=== PATIENT | female | born 1975 | race Caucasian/White ===

== ENCOUNTER 2017-02-09 20:30 | Outpatient (CLI) | payer MEDICARE, MEDICAID | END 2017-02-09 20:31 | disposition home or self-care (01) | LOC: SLEEPLAB 20:30 | PROVIDERS: ATTEND Student in an Organized Health Care Education/Training Program | DX: G47.9 Sleep disorder, unspecified (principal); E11.9 Type 2 diabetes mellitus without complications; F32.9 Major depressive disorder, single episode, unspecified; I10 Essential (primary) hypertension | CPT/HCPCS: 95810 ==

== ENCOUNTER 2017-02-14 16:59 | Emergency (ER) | payer MEDICARE, MEDICAID ==
[2017-02-14] MEDS ORDERED: Lidocaine 1% PF 5 ML VIAL ONE (18:04)
[2017-02-14] MEDS ORDERED: Adacel (T-DAP) 0.5 ML VIAL ONE (18:46)
== END 2017-02-14 18:56 | disposition home or self-care (01) ==
LOC: ERS 16:59
DX: L02.01 Cutaneous abscess of face (principal); E78.5 Hyperlipidemia, unspecified; I10 Essential (primary) hypertension; E11.9 Type 2 diabetes mellitus without complications; F32.9 Major depressive disorder, single episode, unspecified; Z79.899 Other long term (current) drug therapy; Z79.4 Long term (current) use of insulin
CPT/HCPCS: 10060; 87070; 87077; 87186; 87205; 90471; 90715; J2001

== ENCOUNTER 2017-03-24 11:12 | Emergency (ER) | payer MEDICARE, MEDICAID ==
[2017-03-24] MEDS ORDERED: Lidocaine 1% (PF) 30 ML VIAL ONE (12:15)
[2017-03-24] MEDS ORDERED: HYDROcodone/Acetaminophen 10/325 mg Tablet ONE (12:23)
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
== END 2017-03-24 14:38 | disposition home or self-care (01) ==
LOC: ERS 11:12
DX: S61.412A Laceration without foreign body of left hand, initial encounter (principal); E78.5 Hyperlipidemia, unspecified; I10 Essential (primary) hypertension; E11.9 Type 2 diabetes mellitus without complications; F32.9 Major depressive disorder, single episode, unspecified; W26.0XXA Contact with knife, initial encounter
CPT/HCPCS: 12001; 99406; J2001

== ENCOUNTER 2017-05-06 09:42 | Outpatient (CLI) | payer MEDICARE, MEDICAID ==
--- NOTE | 2017-05-06 13:19 | MRI ---
MRI OF RIGHT SHOULDER PERFORMED WITHOUT CONTRAST ENHANCEMENT: HISTORY: The patient injured biceps tendon, hearing a pop while throwing a football. FINDINGS: The AC joint shows mild hypertrophic change. The infraspinatus tendon is intact. The supraspinatus tendon also appears intact. There appears to be a small interstitial tear and some tendinopathy changes of the supraspinatus tendon. In addition, there are some edema changes near the musculotendinous junction of the more posterior fibers of the supraspinatus tendon which appears to represent a small low-grade muscle injury in this area. The subscapularis muscle and tendon appear intact. Biceps tendon is torn. It is retracted with martha ps tendon seen in a serpiginous shape retracted to the mid humerus level. There is a truncated appea orly to the labrum in this region associated with this. IMPRESSION: 1. Biceps tendon tear. The biceps tendon is retracted to approximately mid humerus level. 2. Evidence of low-grade muscle tear involving the more posterior fibers of the supraspinatus tendon at the musculotendinous junction. 3. Truncated appearance to the labrum at the expected location of the biceps tendon. POS: [facility]
== END 2017-05-06 09:43 | disposition home or self-care (01) ==
LOC: MRI 09:42
PROVIDERS: ATTEND Family Medicine
DX: S46.211A Strain of muscle, fascia and tendon of other parts of biceps, right arm, initial encounter (principal); S46.011A Strain of muscle(s) and tendon(s) of the rotator cuff of right shoulder, initial encounter

== ENCOUNTER 2018-02-05 08:39 | Outpatient (CLI) | payer MEDICARE, MEDICAID ==
--- NOTE | 2018-02-05 10:22 | ULT ---
BILATERAL LOWER EXTREMITY VENOUS DOPPLER ULTRASOUND: DATE: 02/05/2018. COMPARISON: None. HISTORY: Phlebitis, thrombophlebitus. TECHNIQUE: Multiplanar, sparks scale sonographic imaging of venous structures of bilateral lower extremities obttyson vee with color flow and spectral analysis. FINDINGS: Bilateral common femoral veins, greater saphenous veins, profunda femoral veins, femoral veins, popli teal veins, and posterior tibial veins are patent. Normal blood flow, augmentation, and compression noted within the deep venous system bilaterally. No evidence for DVT noted on either side. IMPRESSION: No evidence for deep venous thrombosis of either lower extremity. POS: [facility]
[2018-02-05 10:46] LABS: Estimated GFR-MDRD - POC Greater than 90
--- NOTE | 2018-02-05 13:14 | MRI ---
MRI CERVICAL SPINE WITH AND WITHOUT IV CONTRAST: Date: 02-05-18 Provided Clinical History: Bilateral arm weakness. FINDINGS: Cervical alignment appears normal. Vertebral body heights appear preserved. No focal concerning regio nal marrow or muscular abnormality is apparent. The visualized posterior fossa, cervical spinal cord, and cervicomedullary junction demonstrate normal signal and morphology. There is no evidence for abn ormal contrast enhancement. There is no significant central canal or foraminal narrowing apparent thr oughout. IMPRESSION: Unremarkable MRI of the cervical spine. POS: [facility]
[2018-02-05] MEDS ORDERED: Gadobenate Dimeglumine 529 MG/1 ML (20ML VIAL) ONE (13:39)
== END 2018-02-05 08:40 | disposition home or self-care (01) ==
LOC: BICMRI 08:39
PROVIDERS: ATTEND Family Medicine
DX: I80.00 Phlebitis and thrombophlebitis of superficial vessels of unspecified lower extremity (principal); M79.605 Pain in left leg; M79.606 Pain in leg, unspecified; R60.0 Localized edema; R29.898 Other symptoms and signs involving the musculoskeletal system
CPT/HCPCS: 72156; 82565; 93970; A9579

== ENCOUNTER 2018-10-01 11:47 | Emergency (ER) | payer MEDICARE ==
--- NOTE | 2018-10-01 12:34 | RAD ---
Left knee 4 views HISTORY: Left knee injury. COMPARISON: 09/05/2018. FINDINGS: Joint spaces are preserved. Minimal osteophytosis. No acute fracture or dislocation. Small amount of fluid distends the suprapatellar bursa on the lateral view. IMPRESSION: Small joint effusion. Cause is not evident. No acute osseous abnormalities are demonstrat ed.
[2018-10-01] MEDS ORDERED: Naproxen 500 MG TAB ONE (13:58)
== END 2018-10-01 14:05 | disposition home or self-care (01) ==
LOC: ERS 11:47
DX: M25.562 Pain in left knee (principal)

== ENCOUNTER 2018-10-27 09:20 | Outpatient (CLI) | payer MEDICARE, MEDICAID ==
--- NOTE | 2018-10-27 12:25 | MRI ---
MRI LEFT KNEE: DATE: 08/10/2018. PROVIDED CLINICAL HISTORY: Left knee pain. FINDINGS: The anterior cruciate ligament, posterior cruciate ligament, medial collateral ligament, and lateral collateral ligamentous complex demonstrate an intact MR appearance, as does the extensor mechanism. There is a full-thickness radial tear involving the posterior horn of the medial meniscus as it appro aches the meniscal root. The lateral meniscus demonstrates no evidence for tear. There is multifocal articular cartilage loss involving the medial femorotibial joint, including foci of apparent full-thickness articular cartilage loss. Articular cartilage irregularity and signal in homogeneity involve the patellar articular cartilage with probable near full-thickness fissure involv ing medial facet. There is a small knee joint effusion. No focal concerning regional marrow or muscular signal abnorma lity apparent. IMPRESSION: 1. Posterior horn medial meniscal tear. 2. Medial femorotibial and patellar articular chondrosis. 3. Small knee joint effusion. POS: [facility]
== END 2018-10-27 09:21 | disposition home or self-care (01) ==
LOC: BICMRI 09:20
PROVIDERS: ATTEND Family Medicine
DX: M25.462 Effusion, left knee (principal); S83.242A Other tear of medial meniscus, current injury, left knee, initial encounter

== ENCOUNTER 2018-11-13 11:17 | Outpatient (CLI) | payer MEDICARE, MEDICAID ==
[2018-11-13 12:19] LABS: #Basophils 0.1 thou/uL (0.0-0.2); #Eosinphils 0.2 thou/uL (0.0-0.7); #Lymphocytes 2.2 thou/uL (1.20-3.40); #Monocytes 0.5 thou/uL (0.11-0.59); #Neutrophils 3.7 thou/uL (1.40-6.50); %Basophils 0.8 % (0.0-1.0); %Eosinophils 2.4 % (0.0-10.0); %Lymphocytes 33.3 % (21.0-51.0); %Monocytes 7.7 % (0.0-10.0); %Neutrophils 55.9 % (42.0-75.0); Hemoglobin 13.1 g/dL (12.0-16.0); Mean Corpuscular HGB CONC 34.5 g/dL (32.0-36.0); Mean Corpuscular Hemoglobin 31.6 pg (27.0-31.0); Mean Corpuscular Volume 91.5 fL (78.0-98.0); Mean Platelet Volume 6.5 fL (7.4-10.4); Platelet Count 402 thou/uL (130-400); RBC Distribution Width 12.6 % (11.5-14.5); Red Blood Cell (RBC) Count 4.15 mill/uL (4.20-5.40); White Blood Cell (WBC) Count 6.7 thou/uL (4.8-10.8)
[2018-11-13 12:22] LABS: INR-International Normal Ratio 0.9; Prothrombin Time 11.8 SEC (12.0-14.7)
[2018-11-13 12:38] LABS: Anion Gap 17 mmol/L (10-20); BUN (Urea Nitrogen) 14 mg/dL (7.0-18.7); Calc. Creatinine Clearance 0 mL/min (70-130); Calcium 9.6 mg/dL (7.8-10.44); Carbon Dioxide 19 mmol/L (22-29); Chloride 102 mmol/L (98-107); Estimated GFR-MDRD 73; Glucose 391 mg/dL (70-105); Potassium 4.6 mmol/L (3.5-5.1); Sodium 133 mmol/L (136-145)
== END 2018-11-13 11:18 | disposition home or self-care (01) ==
LOC: LABBT 11:17
PROVIDERS: ATTEND Orthopaedic Surgery
DX: Z01.818 Encounter for other preprocedural examination (principal); S83.242A Other tear of medial meniscus, current injury, left knee, initial encounter
CPT/HCPCS: 80048; 85025; 85610; 93005; 93010

== ENCOUNTER 2018-11-20 06:34 | Day surgery (SDC) | payer MEDICARE, MEDICAID ==
[2018-11-13 11:26] VITALS: BMI 32.0
[2018-11-20] MEDS ORDERED: Fentanyl 100 MCG/2 ML VIAL ONE (06:45)
[2018-11-20] MEDS ORDERED: Bupivacaine/Epinephrine 0.25% 30 ML VIAL ONE (06:50)
[2018-11-20] MEDS ORDERED: Lidocaine 1% (PF) 30 ML VIAL ONE (06:50)
[2018-11-20] MEDS ORDERED: Midazolam HCl 2 mg/2 ml Vial ONE (07:30)
[2018-11-20] MEDS ORDERED: Lidocaine 1% PF 5 ML VIAL ONE (10:17)
[2018-11-20] MEDS ORDERED: Ondansetron PF 4 MG/2 ML Vial ONE (10:17)
[2018-11-20] MEDS ORDERED: Ketorolac Tromethamine 30 MG/ML VIAL ONE (10:17)
[2018-11-20] MEDS ORDERED: PROPOFOL 200 MG/20 ML VIAL ONE (10:17)
[2018-11-20] MEDS ORDERED: HYDROcodone/Acetaminophen 5/325 mg Tablet ONE (12:02)
--- NOTE | 2018-11-20 16:32 | OP ---
DATE OF PROCEDURE: 11/20/2018 PREOPERATIVE DIAGNOSES: 1. Left posterior horn medial meniscus. 2. Chondrosis, medial femoral compartment. POSTOPERATIVE DIAGNOSES: 1. Degenerative fraying, posterior horn of the left medial meniscus tear. 2. Grade 3 medial femoral condyle defect x5 mm and grade 2 x3 mm with grade 1 changes in medial tibial plateau and grade 2 changes noted in patella. PROCEDURE PERFORMED: Partial meniscectomy, posterior horn of medial meniscus. ANESTHESIOLOGIST: Omkar Ball ANESTHESIA: The patient received an LMA with 30 mL of Marcaine 0.25% with epinephrine preprocedure and 1% lidocaine plain postprocedure. ANTIBIOTICS: Ancef 2 g. TOURNIQUET TIME: 14 minutes. COMPLICATIONS: None. ESTIMATED BLOOD LOSS: 10 mL. HISTORY PRESENT ILLNESS: Ms. Kenney is a 43-year-old female presenting with left knee pain for over a month, swelling events, and acute injuries. The patient has had a steroid injection with little relief. Print on the MRI showing a posterior horn of medial meniscus tear with chondral changes. I discussed with the patient risks and benefits of the medial meniscus debridement to include pain, scar, bleeding, infection, damage to vital structures, decreased range of motion and strength, arthritis long-term, and need for further surgery including total knee arthroplasty. The patient understands the risks and benefits, and she would like to proceed. DESCRIPTION OF PROCEDURE: Time-out was performed designating the patient's left lower extremity as the operative site based on site, consents, and marking. After time-out, the patient's left lower extremity was prepped and draped in sterile fashion. I made a lateral incision and used a spinal needle to localize the medial incision. We excised the fat pad to visualize the ACL, PCL, and patellofemoral compartment. The patella had grade 2 changes noted. I looked in the gutters for any loose bodies, which were not there. Then, I looked in the lateral compartment, which showed no tearing and no significant cartilage injury. I looked medially and noted some grade 3 changes to one segment, which was about 5 mm, and a grade 2 change above it as well as some grade 1 changes on the tibia. There was a degenerative tear of the posterior horn of the medial meniscus. We debrided it back to the stable remnant. After completion of this, I did not debride the patella defect. I did not really debride to speak of any of the medial femoral condyle. I had injected Marcaine before the procedure, which had been washed out during the case with epinephrine washed out during the case. I injected lidocaine postprocedure, closed the sutures, let the tourniquet down after 14 minutes, and placed a soft tissue dressing. The patient will be weightbearing as tolerated and will follow me up in 10 to 12 days for suture removal. The patient's outlook is guarded. Job ID: [id number] [facility]
== END 2018-11-20 15:00 | disposition home or self-care (01) ==
LOC: SDC 06:34
PROVIDERS: ATTEND Orthopaedic Surgery
PROC: 0SBD4ZZ Excision of Left Knee Joint, Percutaneous Endoscopic Approach (ICD-10-PCS; principal; 2018-11-20)
DX: M23.322 Other meniscus derangements, posterior horn of medial meniscus, left knee (principal); M23.8X2 Other internal derangements of left knee; E11.9 Type 2 diabetes mellitus without complications; I11.0 Hypertensive heart disease with heart failure; F32.9 Major depressive disorder, single episode, unspecified; E78.00 Pure hypercholesterolemia, unspecified; Z79.4 Long term (current) use of insulin; Z79.82 Long term (current) use of aspirin; Z79.899 Other long term (current) drug therapy; Z91.040 Latex allergy status
CPT/HCPCS: 36416; J0690; J2001; J2250; J3010

== ENCOUNTER 2018-12-01 19:30 | Outpatient (CLI) | payer MEDICARE, MEDICAID | END 2018-12-01 19:31 | disposition home or self-care (01) | LOC: SLEEPLAB 19:30 | PROVIDERS: ATTEND Family Medicine | DX: G47.33 Obstructive sleep apnea (adult) (pediatric) (principal); R53.83 Other fatigue; R06.83 Snoring; G47.00 Insomnia, unspecified; E66.9 Obesity, unspecified; I10 Essential (primary) hypertension; E11.9 Type 2 diabetes mellitus without complications; Z68.31 Body mass index [BMI] 31.0-31.9, adult | CPT/HCPCS: 95810 ==

== ENCOUNTER 2019-01-02 20:30 | Outpatient (CLI) | payer MEDICARE, MEDICAID | END 2019-01-02 20:31 | disposition home or self-care (01) | LOC: SLEEPLAB 20:30 | PROVIDERS: ATTEND Family Medicine | DX: G47.33 Obstructive sleep apnea (adult) (pediatric) (principal); R53.83 Other fatigue; G47.00 Insomnia, unspecified; R06.83 Snoring; G47.10 Hypersomnia, unspecified; I10 Essential (primary) hypertension; E11.9 Type 2 diabetes mellitus without complications; E66.9 Obesity, unspecified; Z68.31 Body mass index [BMI] 31.0-31.9, adult | CPT/HCPCS: 95811 ==

== ENCOUNTER 2019-01-06 18:28 | Emergency (ER) | payer MEDICARE, MEDICAID | END 2019-01-06 19:07 | disposition home or self-care (01) | LOC: SCSER 18:28 | DX: Z48.01 Encounter for change or removal of surgical wound dressing (principal) | CPT/HCPCS: 99283 ==

== ENCOUNTER 2019-08-27 10:50 | Outpatient (CLI) | payer MEDICARE, MEDICAID ==
--- NOTE | 2019-08-27 14:05 | MRI ---
MR OF THE LEFT KNEE WITHOUT CONTRAST: 08/27/19 INDICATION: History of left patellar chondromalacia and anterior left knee pain. COMPARISON: Prior MR of the left knee dated 10/27/18. FINDINGS: There is worsening mild superficial chondrosis involving the medial patellar facet and median patella r ridge. There is a near full thickness articular cartilage defect involving the medial patellar face t measuring 5 mm slightly more pronounced than on the prior examination. There is worsening chondrosi s also affecting the medial femorotibial joint compartment with full thickness articular cartilage de fect involving the anterior central femoral condyle on image 15 series 7 measuring 3.5 mm. There is a lso full thickness thinning involving a small punctate region of the anterior tibia on image 12 of se randall 6 measuring approximately 6 mm. There is subchondral edema affecting the full thickness defects. There is a persistent radial tear involving the posterior root of the medial meniscus with partial me dial extrusion. The lateral meniscus is intact. The ACL, PCL, MCL, and LCLC are intact. The extensor mechanism is intact. IT band and popliteus appea r within normal limits. IMPRESSION: 1. Persistent radial tear of the posterior root of the medial meniscus with partial medial extru richard. 2. Worsening chondrosis of the medial femorotibial joint compartment and medial patella. POS: [facility]
== END 2019-08-27 10:51 | disposition home or self-care (01) ==
LOC: BICMRI 10:50
PROVIDERS: ATTEND Orthopaedic Surgery
DX: M22.42 Chondromalacia patellae, left knee (principal); M23.222 Derangement of posterior horn of medial meniscus due to old tear or injury, left knee

== ENCOUNTER 2019-10-02 05:03 | Outpatient (CLI) | payer MEDICARE, MEDICAID, OTHER ==
--- NOTE | 2019-10-02 11:36 | RAD ---
EXAM: CHEST TWO VIEWS 10/02/2019 11:33 AM HISTORY: Preop evaluation COMPARISON: November 30, 2016 FINDINGS: Lungs: No acute airspace consolidation is evident. There is a hair braid artifact overlying the left upper lobe. Heart: Normal in size and contour. Pulmonary Vessels: Normal. Costophrenic Angles: Clear. Pneumothorax: None. Osseous Structures: Intact. Additional Findings: None. IMPRESSION: No significant acute intrathoracic disease.
[2019-10-02 13:57] LABS: #Basophils 0.1 thou/uL (0.0-0.2); #Eosinphils 0.2 thou/uL (0.0-0.7); #Lymphocytes 2.1 thou/uL (1.20-3.40); #Monocytes 0.5 thou/uL (0.11-0.59); #Neutrophils 2.4 thou/uL (1.40-6.50); %Basophils 1.2 % (0.0-1.0); %Eosinophils 3.3 % (0.0-10.0); %Lymphocytes 40.3 % (21.0-51.0); %Monocytes 9.9 % (0.0-10.0); %Neutrophils 45.3 % (42.0-75.0); Hemoglobin 11.1 g/dL (12.0-16.0); Mean Corpuscular HGB CONC 31.6 g/dL (32.0-36.0); Mean Corpuscular Hemoglobin 25.2 pg (27.0-31.0); Mean Corpuscular Volume 79.9 fL (78.0-98.0); Mean Platelet Volume 6.9 fL (7.4-10.4); Platelet Count 463 thou/uL (130-400); RBC Distribution Width 16.3 % (11.5-14.5); Red Blood Cell (RBC) Count 4.38 mill/uL (4.20-5.40); White Blood Cell (WBC) Count 5.3 thou/uL (4.8-10.8)
[2019-10-02 14:02] LABS: INR-International Normal Ratio 0.9; Prothrombin Time 11.8 sec (12.0-14.7)
[2019-10-02 14:04] LABS: BHCG - Serum Negative (NEGATIVE); Pregs Control Background? CLEAR/WHITE (CLR/WHITE); Pregs Control Bar Appear? YES (CONTROL BAR)
[2019-10-02 14:21] LABS: Anion Gap 12 mmol/L (10-20); BUN (Urea Nitrogen) 10 mg/dL (7.0-18.7); Calc. Creatinine Clearance 0 mL/min (70-130); Carbon Dioxide 25 mmol/L (22-29); Chloride 108 mmol/L (98-107); Potassium 4.8 mmol/L (3.5-5.1); Sodium 140 mmol/L (136-145)
[2019-10-02 14:22] LABS: Calcium 9.2 mg/dL (7.8-10.44); Estimated GFR-MDRD Greater than 90; Glucose 190 mg/dL (70-105)
[2019-10-02 14:33] LABS: Bacteria/HPF None Seen HPF (None Seen); Bilirubin Negative (Negative); Blood, Urine Negative (Negative); Clarity Clear (Clear); Glucose, Urine (Dipstick) Greater than 1000 mg/dL (Negative); Ketone, Urine Negative (Negative); Leukocyte Negative Leu/uL (Negative); Nitrite Negative (Negative); Protein, Urine (Dipstick) Negative (Neg-Trace); RBC/HPF 0-3 HPF (0-3); Specific Gravity, Urine 1.045 (1.002-1.036); Squamous Epithelial 0-3 HPF (0-3); Urobilinogen Normal mg/dL (Less than 2); pH, Urine 5.5 (5.0-9.0)
[2019-10-03 12:37] LABS: SARS-CoV-2 MS2 Positive; SARS-CoV-2 N Gene Negative; SARS-CoV-2 S Gene Negative; SARS-CoV-2 orf1ab Negative
== END 2019-10-02 05:04 | disposition home or self-care (01) ==
LOC: LABBT 05:03
PROVIDERS: ATTEND Orthopaedic Surgery
DX: Z01.818 Encounter for other preprocedural examination (principal); Z11.59 Encounter for screening for other viral diseases; S83.412A Sprain of medial collateral ligament of left knee, initial encounter; M22.42 Chondromalacia patellae, left knee
CPT/HCPCS: 71046; 80048; 81001; 84703; 85025; 85610; 87081; 93005; U0003; 87635; 93010

== ENCOUNTER 2019-10-02 11:00 | Inpatient (IN) | payer MEDICARE, MEDICAID ==
[2019-10-06] MEDS ORDERED: Vancomycin HCl 500 MG VIAL ONE (06:03)
[2019-10-06] MEDS ORDERED: Vancomycin 1 GM/200 ML BAG ONE (06:05)
[2019-10-06] MEDS ORDERED: Tranexamic Acid 1,000 MG/10 ML VIAL ONE (06:05)
[2019-10-06] MEDS ORDERED: Sodium Chloride 0.9% 100 ML ONE (06:05)
[2019-10-06] MEDS ORDERED: Fentanyl 100 MCG/2 ML VIAL ONE ×5 (06:07→10:11)
[2019-10-06] MEDS ORDERED: Midazolam HCl 2 mg/2 ml Vial ONE ×2 (06:25→06:58)
[2019-10-06] MEDS ORDERED: Lidocaine 1% (PF) 30 ML VIAL ONE (06:25)
[2019-10-06] MEDS ORDERED: Lidocaine 1% w/Epinephrine 1:100K 20 ML VIAL ONE (06:30)
[2019-10-06] MEDS ORDERED: Bupivacaine 0.25% HCL 30 ML VIAL ONE (06:30)
[2019-10-06] MEDS ORDERED: Ondansetron PF 4 MG/2 ML Vial IVP PRN ×2 (07:11→11:12)
[2019-10-06] MEDS ORDERED: Promethazine HCl 25 MG/ML VIAL IM PRN ×3 (07:11→11:12)
[2019-10-06] MEDS ORDERED: traMADol HCl 50 MG TAB PO PRN ×3 (07:11→11:12)
[2019-10-06] MEDS ORDERED: Fentanyl 100 MCG/2 ML VIAL SLOW IVP PRN ×3 (07:11→11:12)
[2019-10-06] MEDS ORDERED: HYDROcodone/Acetaminophen 10/325 mg Tablet PO PRN ×3 (07:11→11:12)
[2019-10-06] MEDS ORDERED: Acetaminophen 325 MG TAB PO PRN ×3 (07:11→12:13)
[2019-10-06] MEDS ORDERED: Zolpidem Tartrate 5 MG TAB PO PRN ×2 (07:11→11:12)
[2019-10-06] MEDS ORDERED: Ropivacaine HCl/PF 250 ML in Premix Bag 1 BAG NERVE BLCK SCH (07:11)
[2019-10-06] MEDS ORDERED: Promethazine HCl 25 MG/ML VIAL SLOW IVP PRN (09:11)
[2019-10-06] MEDS ORDERED: Ondansetron HCl/PF 4 MG/2 ML Vial IVP PRN (09:11)
[2019-10-06] MEDS ORDERED: Ketorolac Tromethamine 30 MG/ML VIAL IVP PRN (11:12)
[2019-10-06] MEDS ORDERED: diphenhydrAMINE 25 MG CAP PO PRN (11:12)
[2019-10-06] MEDS: Ketorolac Tromethamine 30 MG/ML VIAL IVP SCH ×3 (11:24→23:05)
--- NOTE | 2019-10-06 11:28 | PDOC.FPRHP ---
- History of Present Illness Chief Complaint: Consult for medical management, s/p L TKR History of Present Illness: Ms. Kenney is a pleasant 43yoF who presented to the hospital for elective left total knee replacement. Per the patient, she had a longstanding history of arthritis with significant pain in her knee. She is post-operative day 0 and doing well. She states her pain is well controlled. She complains of mild burning sensation on her skin. She has a PMH of DM II, HTN, insomnia, HLD, and anxiety/depression. - Allergies/Adverse Reactions Allergies Allergy/AdvReac Type Severity Reaction Status Date / Time latex Allergy Verified 09/30/19 13:38 - Home Medications Medication Instructions Recorded Confirmed Type Aspirin 81 mg PO DAILY #0 tab 11/25/13 10/06/19 Rx Gabapentin 1 tab PO TID 11/13/18 10/06/19 History Insulin Lispro [Humalog Kwikpen] 14 unit SQ TID-WM PRN 11/13/18 10/06/19 History Liraglutide [Victoza 2-Alonzo] 1.8 ml SC DAILY 11/13/18 10/06/19 History traZODone HCl [Trazodone HCl] 150 mg PO HS 11/13/18 10/06/19 History Atorvastatin Calcium 80 mg PO HS 09/30/19 10/06/19 History Empagliflozin [Jardiance] 25 mg PO DAILY 09/30/19 10/06/19 History Insulin Glargine,Hum.Rec.Anlog 70 unit SQ BID 09/30/19 10/06/19 History [Toujeo Solostar] Losartan Potassium [Cozaar] 50 mg PO DAILY 09/30/19 10/06/19 History hydrOXYzine [Atarax] 1 mg PO HS PRN 09/30/19 10/06/19 History Mupirocin 2% Ointment (Nasal) 1 applic EA NARE BID 10/06/19 10/06/19 History [Bactroban 2% Nasal Ointment] Venlafaxine HCl 2 tablet PO DAILY 10/06/19 10/06/19 History - History PMHx: DM II HTN HLD Insomnia Anxiety/depression Obstructive sleep apnea, without CPAP use at home PSHx: L bunionectomy L total knee R salpingectomy/oopherectomy Tubal ligation FHx: Mom: DM II, CAD Aunt: SLE Social: Denies tobacco, alcohol or drug use. - Review of Systems General: denies: fever/chills, weight/appetite/sleep changes, night sweats Eyes: denies: eye pain, vision changes ENT: denies: nasal congestion, rhinorrhea Respiratory: denies: cough, congestion, shortness of breath Cardiovascular: denies: chest pain, palpitation, edema, paroxysmal nocturnal dyspnea, orthopnea Gastrointestinal: denies: nausea, vomiting, diarrhea, constipation, abdominal pain Genitourinary: denies: incontinence, dysuria Skin: denies: rashes, lesions Musculoskeletal: reports: arthritis/arthralgias. denies: pain, tenderness, stiffness, swelling Neurological: denies: numbness, syncope, seizure Psychological: reports: anxiety, depression - Vital signs Selected Entries 10/06/19 11:23 Temperature 98 F Pulse Rate 90 Blood Pressure 136/56 L [Semi-Fowlers] Respiratory 18 Rate O2 Sat by Pulse 96 Oximetry Weight: 77kg - Physical Exam Constitutional: NAD, awake, alert and oriented, well developed HEENT: normocephalic and atraumatic, PERRLA, EOMI, conjunctiva clear, grossly normal vision, grossly normal hearing Neck: supple, trachea midline Heart: RRR, normal S1/S2, no murmurs/rubs/gallops, pulses present, no edema Lungs: CTAB, no respiratory distress, good air movement Abdomen: soft, non-tender, bowel sounds present Musculoskeletal: normal structure, normal tone -Musculoskeletal: Left knee bandaged postoperatively Neurological: no focal deficit, CN II-XII intact Skin: no rash/lesions, good turgor Heme/Lymphatic: no unusual bruising or bleeding, no purpura Psychiatric: normal mood and affect, good judgment and insight, intact recent and remote memory FMR H&P: A/P - Problem List (1) CAD (coronary artery disease) Current Visit: No Status: Acute Code(s): I25.10 - ATHSCL HEART DISEASE OF [place] CORONARY ARTERY W/O ANG PCTRS (2) Hypertension Current Visit: No Status: Acute Code(s): I10 - ESSENTIAL (PRIMARY) HYPERTENSION (3) Type 2 diabetes mellitus Current Visit: No Status: Acute (4) HLD (hyperlipidemia) Current Visit: Yes Status: Acute Code(s): E78.5 - HYPERLIPIDEMIA, UNSPECIFIED (5) Anxiety and depression Current Visit: Yes Status: Acute Code(s): F41.9 - ANXIETY DISORDER, UNSPECIFIED; F32.9 - MAJOR DEPRESSIVE DISORDER, SINGLE EPISODE, UNSPECIFIED (6) Insomnia Current Visit: Yes Status: Acute Code(s): G47.00 - INSOMNIA, UNSPECIFIED - Plan Postoperative day 0, s/p L TKR. -management per orthopedic team. -pain management -VTE ppx DM II -Restarted home medications (Toujeo, SSI, Jardiance, and Victoza) -Aggressive SSI, hypoglycemia protocol -Consistent carbohydrate diet HTN -Restarted home medication (Losartan) Anxiety / Depression -Restart Venlafaxine HLD -Restart atorvastatin Insomnia -Restart trazodone, hydroxyzine prn. Code: Full VTE: SCDs Dispo: Stable, inpatient. PCP: LAMINE Patricio FMR H&P: Upper Level - Plan Date/Time: 10/06/19 2442 I, [], have evaluated this patient and agree with findings/plan as outlined by newsroom intern resident. Pertinent changes/additions are listed here. Addendum - Attending - Attending Attestation Date/Time: 10/06/19 [id number] I personally evaluated the patient and discussed the management with Dr. Doan. I agree with the History, Examination, Assessment and Plan documented above with any addition or exceptions noted below.
[2019-10-06] MEDS ORDERED: hydrOXYzine 25 MG TAB PO PRN (11:51)
[2019-10-06] MEDS ORDERED: HumaLOG 300 UNITS/3 ML VIAL SC PRN ×2 (11:53)
[2019-10-06] MEDS ORDERED: Dextrose 5% in Water 1,000 ML IV PRN (11:53)
[2019-10-06] MEDS ORDERED: Dextrose 50% Abboject 50 ML SYRINGE SLOW IVP PRN (11:53)
[2019-10-06] MEDS ORDERED: Aspirin 81 mg Enteric Coated Tablet PO SCH (12:15)
[2019-10-06] MEDS ORDERED: Ropivacaine 0.2% HCl/PF (40 MG/20 ML VIAL) ONE (12:24)
[2019-10-06] MEDS ORDERED: PROPOFOL 200 MG/20 ML VIAL ONE (12:24)
[2019-10-06] MEDS ORDERED: Bupivacaine HCl 0.5%/Epinephrine 1:200,000/PF 30 ml Vial ONE (12:24)
[2019-10-06] MEDS ORDERED: Ondansetron PF 4 MG/2 ML Vial ONE (12:24)
[2019-10-06] MEDS ORDERED: Lidocaine 1% PF 5 ML VIAL ONE (12:24)
[2019-10-06] MEDS: Sodium Chloride 0.9% 1,000 ML IV SCH ×2 (12:31→22:48)
--- NOTE | 2019-10-06 13:30 | RAD ---
RADIOGRAPH LEFT KNEE 2 VIEWS: DATE: 10/06/2019 HISTORY: 43-year-old female with chronic left knee pain. FINDINGS: Resurfacing changes of articular surfaces of distal femur, patella, and tibial plateau. Metallic pros theses cover the resurfaced articular surfaces of distal femur and tibial plateau. Subcutaneous emphysema in the anterior soft tissues of the thigh and knee indicate recent status of surgery. IMPRESSION: Very recently status post total left knee replacement arthroplasty.
--- NOTE | 2019-10-06 13:51 | OP ---
DATE OF PROCEDURE: 10/06/2019 PREOPERATIVE DIAGNOSIS: Left knee osteoarthritis. POSTOPERATIVE DIAGNOSIS: Left knee osteoarthritis. PROCEDURE PERFORMED: Left total knee arthroplasty. SAND HAULER: Maria Victoria Rider PA-C ANESTHESIOLOGIST: Ha Hubbard MD ANESTHESIA: The patient received a LMA, single-shot sciatic and adductor canal. ESTIMATED BLOOD LOSS: Less than 100 mL. TOURNIQUET TIME: 87 minutes at 300 mmHg. ANTIBIOTICS: Ancef 2 g, vancomycin 1 g, and TXA 1 g. IMPLAINTS: The patient had a size 3 CS X3 poly, a triathlon size 3 primary baseplate, S27 patella, and size 3 cruciate-retaining femur. COMPLICATIONS: None. HISTORY OF PRESENT ILLNESS: The patient is a 43-year-old female, who presented with left knee pain, increasing in magnitude. I discussed the risks and benefits of left total knee arthroplasty to include, pain, scar, bleeding, infection, damage to vital structures, decreased range of motion and strength, need for further surgeries, failure of implant, need for revision, blood clots, loss of life or limb. The patient understood the risks and benefits of left total knee arthroplasty and elected to proceed. DESCRIPTION OF PROCEDURE: Time-out was performed designating the patient's left lower extremity as the operative site based on site, consents, and marking. After time-out, the patient's left lower extremity was prepped and draped in sterile fashion. Tourniquet was brought up and left for 87 minutes. Anterior midline approach was made. Medial patellar arthrotomy was performed to excise the fat pad, everted the patella, mapped the distal femur cut at 7 and 9, 0 degrees of varus and valgus, 4 degrees of slope. We pinned our 3-degree external rotation guide in place. After we released ACL and menisci, we placed our yeny laterally to help expose the femur. We pinned it in place. We sized to a 3, cut our anterior, posterior, and chamfer cuts. We removed osteotomes and placed our pickle fork in position and released the ACL, cut the tibia at 2 and 5, went to 4 and 7 with 0 degrees of varus, 4 degrees of slope, after noticing tightness with added 2mm tightness. Ultimately, we then placed the lamina spreaders, removed our menisci , released our PCL, tibial trayanterior and one-third of tibia down the tibial spine our tray tracked the femur. It was still kind of a little tight in flexion and extension. Therefore, we cut 2 more millimeters off up to 4 and 7. We then cleaned up the menisci, placed our lamina ship's officer and ensured all the osteophytes were removed, released the PCL and placed our tray back in position. She had good overall flexion and extension access. Good stability of varus and valgus, liked the alignment. We then everted the patella, cut it down from about 24 down to 12 and cut about 10 mm off, drilled for a symmetric patella. The patella tracked well when the toes clamped across. We then drilled our lugs for our femur, cut our keel for our tibia, removed all implants, cemented our tibia, placed our poly, after removing excess cement and cemented our femur, removed excess cement, cemented our patella, removed excess cement. We then washed. We closed the patient's arthrotomy with #2 Vicryl, #2 Stratafix, 0 Stratafix, and 2-0 Stratafix, and glue. The patient will be weightbearing as tolerated, following [place] protocol. She will receive perioperative antibiotics. She will be followed in-house by Medicine for diabetes. Job ID: [id number] [facility]
[2019-10-06] MEDS: Gabapentin 400 MG CAP PO SCH ×2 (15:16→20:12)
[2019-10-06] MEDS: CEFAZOLIN 2 GM in Premix Bag 1 BAG IVPB SCH ×2 (15:17→23:05)
[2019-10-06 16:50] VITALS: BMI 30.2
[2019-10-06] MEDS ORDERED: Vancomycin 1 GM in Premix Bag 1 BAG IVPB SCH (19:00)
[2019-10-06] MEDS: Insulin Glargine 56 UNITS in Pre-Filled Syringe 1 EACH SC SCH (20:11)
[2019-10-06] MEDS: Aspirin 81 mg Enteric Coated Tablet PO SCH (20:12)
[2019-10-06] MEDS: Atorvastatin Calcium 40 MG TAB PO SCH (20:12)
[2019-10-06] MEDS: traZODone HCl 150 MG TAB PO SCH (20:17)
[2019-10-06] MEDS ORDERED: Non-Formulary Item 1 EACH (Insulin Glargine,Hum.Rec.Anlog [Toujeo Solostar] 70 UNIT) SQ SCH (21:00)
[2019-10-06] MEDS: HYDROcodone/Acetaminophen 10/325 mg Tablet PO PRN (23:09)
[2019-10-07] MEDS: Ketorolac Tromethamine 30 MG/ML VIAL IVP SCH ×4 (05:03→23:07)
[2019-10-07] MEDS: HYDROcodone/Acetaminophen 10/325 mg Tablet PO PRN ×3 (05:06→17:17)
[2019-10-07 05:22] LABS: Hemoglobin 9.9 g/dL (12.0-16.0); Mean Corpuscular Hemoglobin 24.6 pg (27.0-31.0); Mean Corpuscular Volume 79.5 fL (78.0-98.0); Mean Platelet Volume 7.1 fL (7.4-10.4); Platelet Count 380 thou/uL (130-400); RBC Distribution Width 16.2 % (11.5-14.5); Red Blood Cell (RBC) Count 4.03 mill/uL (4.20-5.40); White Blood Cell (WBC) Count 7.9 thou/uL (4.8-10.8)
[2019-10-07 05:40] LABS: Anion Gap 11 mmol/L (10-20); BUN (Urea Nitrogen) 9 mg/dL (7.0-18.7); Calc. Creatinine Clearance 141 mL/min (70-130); Calcium 7.9 mg/dL (7.8-10.44); Carbon Dioxide 23 mmol/L (22-29); Chloride 107 mmol/L (98-107); Estimated GFR-MDRD Greater than 90; Glucose 112 mg/dL (70-105); Potassium 3.6 mmol/L (3.5-5.1); Sodium 137 mmol/L (136-145)
--- NOTE | 2019-10-07 06:36 | PDOC.FM ---
- Subjective Subjective: Doing well this morning. Complains that she is hungry. - Objective MAR Reviewed: Yes Vital Signs & Weight: Vital Signs (12 hours) Temp Pulse Resp BP Pulse Ox 10/07/19 04:12 98.3 F 100 18 143/87 H 97 10/06/19 23:11 97.8 F 99 16 104/61 93 L 10/06/19 20:04 98.2 F 102 H 18 112/71 97 Weight Weight 74.843 kg I&O: 10/05/19 10/06/19 10/07/19 06:59 06:59 06:59 Intake Total 1700 Output Total 775 Balance 925 Result Diagrams: 10/07/19 04:44 10/07/19 04:44 Phys Exam - Physical Examination Constitutional: NAD HEENT: PERRLA, moist MMs Neck: no nodes Respiratory: no wheezing, no rales, no rhonchi, clear to auscultation bilateral Cardiovascular: RRR, no significant murmur Gastrointestinal: soft, non-tender Musculoskeletal: no edema, pulses present L Knee bandaged Neurological: non-focal Psychiatric: normal affect Skin: no rash, normal turgor Dx/Plan (1) CAD (coronary artery disease) Code(s): I25.10 - ATHSCL HEART DISEASE OF [place] CORONARY ARTERY W/O ANG PCTRS Status: Acute (2) Hypertension Code(s): I10 - ESSENTIAL (PRIMARY) HYPERTENSION Status: Acute (3) Type 2 diabetes mellitus Status: Acute (4) HLD (hyperlipidemia) Code(s): E78.5 - HYPERLIPIDEMIA, UNSPECIFIED Status: Acute (5) Anxiety and depression Code(s): F41.9 - ANXIETY DISORDER, UNSPECIFIED; F32.9 - MAJOR DEPRESSIVE DISORDER, SINGLE EPISODE, UNSPECIFIED Status: Acute (6) Insomnia Code(s): G47.00 - INSOMNIA, UNSPECIFIED Status: Acute - Plan Plan: Postoperative day 1, s/p L TKR. -Posteroperative pain management per orthopedic team. -VTE ppx -PT DM II -Restarted home medications (Toujeo, SSI, Jardiance, and Victoza) -Aggressive SSI, hypoglycemia protocol -Consistent carbohydrate diet -Glucose has been well controlled overnight. HTN -Restarted home medication (Losartan) Anxiety / Depression -Restart Venlafaxine HLD -Restart atorvastatin Insomnia -Restart trazodone, hydroxyzine prn. Code: Full VTE: SCDs Dispo: Stable, inpatient. PCP: LAMINE - Dr. Patricio Addendum - Attending - Attending Attestation Date/Time: 10/07/19 7142 I personally evaluated the patient and discussed the management with Dr. Doan. I agree with the History, Examination, Assessment and Plan documented above with any addition or exceptions noted below. Glucose mildly elevated and BP at goal. monitor overnight and consider increasing long acting insulin in the morning. we will follow with you.
[2019-10-07] MEDS: Sodium Chloride 0.9% 1,000 ML IV SCH ×2 (08:14→17:14)
[2019-10-07] MEDS: Aspirin 81 mg Enteric Coated Tablet PO SCH ×2 (08:16→19:36)
[2019-10-07] MEDS: Venlafaxine HCl XR 75 MG CAP PO SCH (08:17)
[2019-10-07] MEDS: Insulin Glargine 56 UNITS in Pre-Filled Syringe 1 EACH SC SCH ×2 (08:17→19:37)
[2019-10-07] MEDS: Gabapentin 400 MG CAP PO SCH ×3 (08:17→19:36)
[2019-10-07] MEDS: Ferrous Gluconate 324 MG TAB PO SCH ×2 (08:17→19:36)
[2019-10-07] MEDS: Senokot S 8.6-50 MG TAB PO SCH ×2 (08:18→19:36)
[2019-10-07] MEDS: LIRAGLUTIDE 0.6 MG/0.1 ML SC SCH (08:18)
[2019-10-07] MEDS: Multivitamin W/ Minerals 1 TAB PO SCH (08:18)
[2019-10-07] MEDS: Empagliflozin 25 MG TAB PO SCH (08:18)
[2019-10-07] MEDS: Losartan 25 MG TAB PO SCH (09:04)
--- NOTE | 2019-10-07 15:55 | PDOC.EVN ---
Event Note - Event Note Event Note: 43yo female with pmh of DMII POD #1 from left total knee arthroplasty reports she is feeling well, pain controlled with medications. Working with PT. PE: General: NAD, laying in bed with knee elevated Pulm: No resp distress Extremities: Knee elevated and vertical incision covered with dressing A/P: OA s/p total knee arthroplasty - Continue pain management and PT DMII - Has been resumed on home meds. - Will start process for obtaining Glucerna shakes outpt. Sheryl Patricio MD PGY-3
[2019-10-07] MEDS: traZODone HCl 150 MG TAB PO SCH (19:36)
[2019-10-07] MEDS: Atorvastatin Calcium 40 MG TAB PO SCH (19:36)
[2019-10-08] MEDS: Sodium Chloride 0.9% 1,000 ML IV SCH (04:19)
[2019-10-08] MEDS: HYDROcodone/Acetaminophen 10/325 mg Tablet PO PRN ×3 (05:15→13:20)
[2019-10-08] MEDS: Ketorolac Tromethamine 30 MG/ML VIAL IVP SCH (05:16)
[2019-10-08 05:52] LABS: Hemoglobin 10.2 g/dL (12.0-16.0); Mean Corpuscular HGB CONC 31.7 g/dL (32.0-36.0); Mean Corpuscular Volume 78.8 fL (78.0-98.0); Mean Platelet Volume 7.1 fL (7.4-10.4); Platelet Count 399 thou/uL (130-400); RBC Distribution Width 16.4 % (11.5-14.5); Red Blood Cell (RBC) Count 4.09 mill/uL (4.20-5.40); White Blood Cell (WBC) Count 6.7 thou/uL (4.8-10.8)
--- NOTE | 2019-10-08 06:04 | PDOC.FM ---
- Subjective Subjective: Pt did well overnight. She did go some time without pain medications, despite having PRN medications, which was distressing to her. She has some mild loose stools this AM, no concerns otherwise. - Objective MAR Reviewed: Yes Vital Signs & Weight: Vital Signs (12 hours) Temp Pulse Resp BP Pulse Ox 10/08/19 03:16 98.9 F 108 H 16 134/86 92 L 10/08/19 00:17 97.9 F 99 18 155/93 H 99 10/07/19 19:51 98.4 F 100 18 114/76 94 L Weight Admit Weight 74.843 kg Weight 74.843 kg I&O: 10/06/19 10/07/19 10/08/19 06:59 06:59 06:59 Intake Total 1700 Output Total 775 Balance 925 Result Diagrams: 10/08/19 05:33 10/07/19 04:44 Phys Exam - Physical Examination Constitutional: NAD HEENT: moist MMs Neck: no JVD, full ROM Respiratory: no wheezing, clear to auscultation bilateral Cardiovascular: RRR, no significant murmur, no rub Gastrointestinal: soft, non-tender, no distention, positive bowel sounds Musculoskeletal: pulses present, edema present (trace edema on left leg, no ttp of the calf) Neurological: normal sensation, moves all 4 limbs Psychiatric: A&O x 3 Skin: cap refill <2 seconds Dx/Plan - Plan Plan: L TKR POD 2 -Post op care per primary team -VTE ppx -PT -Likely DC today DM2 -Continue home Toujeo, SSI, Jardiance, Victoza -Diabetic protocols per orders HTN -Continue losartan Anxiety/Depression -Continue Venlafaxine HLD -Home Atorvastatin Insomnia -Home trazodone, PRN hydroxyzine and ambien Addendum - Attending - Attending Attestation Date/Time: 10/08/19 1256 I personally evaluated the patient and discussed the management with Dr. Mortensen. I agree with the History, Examination, Assessment and Plan documented above with any addition or exceptions noted below. BP and glucose are controlled. F/u with us in clinic in 1-2 weeks. We will sign off at this time. Please reconsult if any needs arise.
[2019-10-08] MEDS: Gabapentin 400 MG CAP PO SCH (09:14)
[2019-10-08] MEDS: Ferrous Gluconate 324 MG TAB PO SCH (09:14)
[2019-10-08] MEDS: Losartan 25 MG TAB PO SCH (09:14)
[2019-10-08] MEDS: Empagliflozin 25 MG TAB PO SCH (09:15)
[2019-10-08] MEDS: Multivitamin W/ Minerals 1 TAB PO SCH (09:15)
[2019-10-08] MEDS: Aspirin 81 mg Enteric Coated Tablet PO SCH (09:15)
[2019-10-08] MEDS: Venlafaxine HCl XR 75 MG CAP PO SCH (09:15)
[2019-10-08] MEDS: Insulin Glargine 56 UNITS in Pre-Filled Syringe 1 EACH SC SCH (09:16)
[2019-10-08] MEDS: LIRAGLUTIDE 0.6 MG/0.1 ML SC SCH (09:16)
[2019-10-08] MEDS: Senokot S 8.6-50 MG TAB PO SCH (09:24)
[2019-10-08 11:28] VITALS: BP 128/85; TEMP 98.4
--- NOTE | 2019-10-08 16:38 | PQF ---
CLINICAL DOCUMENTATION CLARIFICATION FORM: Dear Dr. Mortensen Date: 10/08/2019 Please exercise your independent, professional judgment in responding to the clarification form. Clinical indicators are provided on the bottom of this form for your review. Please check appropriate box(s): [ ] Depression/Major Depressive Disorder Single episode: [ ] Mild [ ] Moderate [ ] Severe [ ] with psychotic features [ ] without psychotic features [ ] In remission [ ] partial remission [ ] full remission [ x ] Depression/Major Depressive Disorder Recurrent episode: [ ] Mild [ ] Moderate [ ] Severe [ ] with psychotic features [ ] without psychotic features [ ] In remission [ x ] partial remission [ ] full remission [ ] Other diagnosis [ ] Unable to determine For continuity of documentation, please document condition throughout progress notes and discharge summary. Thank You. CLINICAL INDICATORS - SIGNS / SYMPTOMS / LABS / RESULTS AND LOCATION IN EMR *Family Practice H&P 10/05 ([facility]): PMHx: Anxiety/Depression *Family Medicine Progress Note 10/06 ([facility]): * Anxiety and Depression * Anxiety Disorder, Unspecified Major Depressive Disorder, Single Episode, Unspecified Status: Acute RISK FACTORS / RESULTS AND LOCATION IN EMR *Family Practice H&P 10/05 ([facility]): PMHx: Anxiety/Depression TREATMENTS / RESULTS AND LOCATION IN EMR *[facility] Practice H&P 10/05 ([facility]): Restart Venlafaxine *Discharge Medications (EMR): Trazadone 150mg PO HS Venlafaxine 2 tablet PO daily Tatyana Whitt CDS/Appetizer Packer Signature: Tatyana Abreu RN, CDS Phone #: [phone] [email or web address] This is a permanent part of the Medical Record [facility]
== END 2019-10-08 13:45 | disposition home or self-care (01) | DRG 470 ==
LOC: SURG A 10-06 05:40 → SJJU 10-06 10:51
PROVIDERS: ADMIT Orthopaedic Surgery; ATTEND Orthopaedic Surgery
PROC: 0SRD0J9 Replacement of Left Knee Joint with Synthetic Substitute, Cemented, Open Approach (ICD-10-PCS; principal; 2019-10-06)
DX: M17.12 Unilateral primary osteoarthritis, left knee (principal); E11.9 Type 2 diabetes mellitus without complications; I10 Essential (primary) hypertension; F41.9 Anxiety disorder, unspecified; E78.5 Hyperlipidemia, unspecified; G47.00 Insomnia, unspecified; G47.33 Obstructive sleep apnea (adult) (pediatric); I25.10 Atherosclerotic heart disease of native coronary artery without angina pectoris; F33.41 Major depressive disorder, recurrent, in partial remission; Z79.899 Other long term (current) drug therapy; Z79.82 Long term (current) use of aspirin; Z79.4 Long term (current) use of insulin; Z91.040 Latex allergy status; Z98.51 Tubal ligation status; Z90.721 Acquired absence of ovaries, unilateral
CPT/HCPCS: 36415; 36416; 80048; 85027; C1713; C1776; J0670; J0690; J1815; J1885; J2001; J2250; J2405; J2704; J2795; J3010; J3370; J3490; S0020

== ENCOUNTER 2020-03-03 06:35 | Outpatient (CLI) | payer MEDICARE, MEDICAID ==
[2020-03-03 13:56] LABS: BHCG - Serum Negative (NEGATIVE); Pregs Control Background? CLEAR/WHITE (CLR/WHITE); Pregs Control Bar Appear? YES (CONTROL BAR)
[2020-03-03 13:59] LABS: Hemoglobin 11.7 g/dL (12.0-16.0); Mean Corpuscular HGB CONC 29.6 G/DL (32.0-36.0); Mean Corpuscular Hemoglobin 23.1 PG (27.0-33.0); Mean Corpuscular Volume 78.1 fl (80.0-100.0); Mean Platelet Volume 9.2 fl (7.4-10.4); Platelet Count 485 10x3/uL (130-400); Red Blood Cell (RBC) Count 5.06 10x6/uL (3.90-5.20); White Blood Cell (WBC) Count 6.7 10x3/uL (4.5-11.0)
[2020-03-04 03:13] LABS: SARS-CoV-2 MS2 Positive; SARS-CoV-2 N Gene Negative; SARS-CoV-2 S Gene Negative; SARS-CoV-2 by NAA Not Detected (NotDetected); SARS-CoV-2 orf1ab Negative
== END 2020-03-03 06:36 | disposition home or self-care (01) ==
LOC: LABBT 06:35
PROVIDERS: ATTEND Student in an Organized Health Care Education/Training Program
DX: Z01.812 Encounter for preprocedural laboratory examination (principal); N93.9 Abnormal uterine and vaginal bleeding, unspecified; Z20.828 Contact with and (suspected) exposure to other viral communicable diseases
CPT/HCPCS: 84703; 85027; 86850; 86900; 86901; U0003; 87635

== ENCOUNTER 2020-03-08 10:25 | Day surgery (SDC) | payer MEDICARE, MEDICAID ==
[2020-03-07 10:55] VITALS: BMI 31.1
[~2020-03-08 10:25] MED LIST: Dexamethasone 20 MG/5 ML VIAL ONE; Glycopyrrolate 0.2 MG/ML 5 ML SYRINGE ONE; Lidocaine 1% PF 5 ML VIAL ONE; Ondansetron PF 4 MG/2 ML Vial ONE; PHENYLEPHRINE-NS 100 MCG/ML 10 ML SYRINGE ONE; PROPOFOL 200 MG/20 ML VIAL ONE; Rocuronium Bromide 10 MG/ML (10ML VIAL) ONE
[2020-03-08] MEDS ORDERED: Gabapentin 300 MG CAP ONE (10:43)
[2020-03-08] MEDS ORDERED: Famotidine/PF 20 mg/2ml Vial ONE (10:43)
[2020-03-08] MEDS ORDERED: CeleCOXIB 100 MG CAP ONE (10:44)
[2020-03-08] MEDS ORDERED: Midazolam HCl 2 mg/2 ml Vial ONE (11:36)
[2020-03-08] MEDS ORDERED: Fentanyl 250 MCG/5 ML VIAL ONE (12:42)
[2020-03-08] MEDS ORDERED: SUGAMMADEX SODIUM 200 MG/2 ML VIAL ONE (12:42)
[2020-03-08] MEDS ORDERED: Lidocaine 1% w/Epinephrine 1:100K 20 ML VIAL ONE (12:47)
[2020-03-08] MEDS ORDERED: Bupivacaine PF 0.5% 30 ML VIAL ONE (12:47)
[2020-03-08] MEDS ORDERED: Simethicone Chewable 80 MG TAB PO PRN (14:41)
[2020-03-08] MEDS ORDERED: traMADol HCl 50 MG TAB PO PRN (14:41)
[2020-03-08] MEDS ORDERED: Dextrose 5% in Water 1,000 ML IV PRN (14:41)
[2020-03-08] MEDS ORDERED: Morphine 2 MG/ML VIAL SLOW IVP PRN (14:41)
[2020-03-08] MEDS ORDERED: Insulin Regular 300 UNITS/3 ML VIAL SC PRN (14:41)
[2020-03-08] MEDS ORDERED: Promethazine HCl 25 MG/ML VIAL IM PRN ×2 (14:41→15:06)
[2020-03-08] MEDS ORDERED: Ondansetron PF 4 MG/2 ML Vial IVP PRN (14:41)
[2020-03-08] MEDS ORDERED: Zolpidem Tartrate 5 MG TAB PO PRN (14:41)
[2020-03-08] MEDS ORDERED: diphenhydrAMINE 25 MG CAP PO PRN (14:41)
[2020-03-08] MEDS ORDERED: Dextrose 50% Abboject 50 ML SYRINGE SLOW IVP PRN (14:41)
[2020-03-08] MEDS ORDERED: Morphine 4 MG/ML VIAL SLOW IVP PRN (14:41)
[2020-03-08] MEDS ORDERED: Bisacodyl 10 MG SUPP PR PRN (14:41)
[2020-03-08] MEDS ORDERED: HYDROcodone/Acetaminophen 5/325 mg Tablet PO PRN (14:41)
[2020-03-08] MEDS ORDERED: hydrOXYzine 25 MG TAB PO PRN (14:45)
[2020-03-08] MEDS ORDERED: HumaLOG 300 UNITS/3 ML VIAL SC PRN (14:59)
[2020-03-08] MEDS ORDERED: Ondansetron HCl/PF 4 MG/2 ML Vial IVP PRN (15:06)
[2020-03-08] MEDS ORDERED: Promethazine HCl 25 MG/ML VIAL SLOW IVP PRN (15:06)
--- NOTE | 2020-03-08 15:55 | OP ---
DATE OF PROCEDURE: 03/08/2020 PREOPERATIVE DIAGNOSES: 1. Menorrhagia. 2. Pelvic pain. POSTOPERATIVE DIAGNOSES: 1. Menorrhagia. 2. Pelvic pain. PROCEDURES PERFORMED: Robotic-assisted total laparoscopic hysterectomy, bilateral salpingectomy, and peritoneal biopsy. ANESTHESIA: General endotracheal. FORENSIC DOCUMENT EXAMINER SURGEON: Pam Saldaña PA-C ESTIMATED BLOOD LOSS: 20 mL. IVF: 1 L of crystalloid. URINE OUTPUT: 250 mL of clear urine. COMPLICATIONS: None. DRAINS: Mcclendon catheter. PATHOLOGY: 1. Uterus, cervix, and bilateral fallopian tubes. 2. Left pelvic sidewall biopsy. FINDINGS: An 11-cm uterus, normal-appearing cervix and vagina, normal-appearing bilateral fallopian tubes, and left ovary. Right ovary surgically absent. Endometriotic implant on the left pelvic sidewall, that was excised. The ureters were intact and there was excellent hemostasis. There were filmy omental adhesions to bilateral adnexa. DESCRIPTION OF PROCEDURE: The patient was taken to the operating room where general anesthesia was obtained without difficulty. The patient was prepped and draped in a sterile fashion in dorsal lithotomy position. A Mcclendon catheter was placed in the bladder. A speculum was placed in the vagina. The anterior lip of the cervix was grasped with a single-tooth tenaculum. The uterus then sounded to 11 cm and the cervix was progressively dilated with Aashish dilators. The FRANCY manipulator was assembled with a 10-cm tip and a 4-cm colpotomizer ring. The manipulator was inserted into the uterus. Balloons were inflated. The speculum and tenaculum were removed out of the vagina. Legs were placed in low lithotomy. Attention was turned to the abdomen. A mixture of 0.5% Marcaine plain and 1% lidocaine with epinephrine was infiltrated into the umbilicus and a 12-mm skin incision was made. The Veress needle was then passed into the abdomen, noting an opening pressure of 3 mmHg. Pneumoperitoneum was obtained without difficulty. The Veress needle was removed. The 12-mm trocar was passed into the abdomen and confirmed placement with the robotic camera. Steep Trendelenburg was obtained. Right and left lower quadrant 8-mm robotic trocars were placed under direct visualization after infiltrating with anesthetic. A right upper quadrant 11-mm assistant teaching professor port was also placed under direct visualization after infiltrating with anesthetic. The robot was then docked. The right robotic arm contained monopolar scissors. Left robotic arm contained a fenestrated bipolar. The surgeon console took control. The omentum was grasped to the adhesions to the right adnexa and the clear filmy adhesions were incised with the scissors on cautery. There was a thicker area of epiploica that was attached to the fallopian tube that was cauterized with the fenestrated and then incised with scissors. At that point, the fallopian tube was then elevated, and the peritoneum and vasculature to the fallopian tube were cauterized with the fenestrated and incised with the scissors, and the fallopian tube was then removed out of the abdomen. The round ligament was then cauterized in the midportion and incised with the scissors and the posterior leaf of the broad ligament was incised down to the level of the uterosacral ligament. The anterior lip of the broad ligament was incised with the scissors as well down to the vesicouterine peritoneum. The retroperitoneum was bluntly dissected off the uterine vessels, pushing laterally with the fenestrated, and several vascular perforators then were cauterized for hemostasis. The ureter was then identified in the pelvic sidewall laterally as it crossed through the uterine vessel. Uterine vessels were skeletonized and the vesicouterine peritoneum was then incised using the fenestrated to undermine and push the bladder down distally below the level of the colpotomizer ring. The anterior leaf of the broad ligament was incised to the level of the round ligament, that was cauterized in the midportion and incised. At that time, the omental adhesions to the left adnexa were incised with the scissors on cautery and taken down. The left ovary was normal and the utero-ovarian was cauterized and then incised. The fallopian tube was elevated in the mesosalpinx was cauterized and incised. The fallopian tube was removed out of the abdomen. The incision on the utero-ovarian and the round ligament were then met with the scissors and the posterior leaf of the broad ligament was dropped down to the level of the uterosacral and the ureter was noted to be running in the pelvic sidewall laterally. The retroperitoneum was sharply dissected off the uterine vessels for adequate skeletonization. A bladder flap was then created by scoring on the pubocervical fascia and bluntly dissecting the adventitia down below the level of the colpotomizer ring and dissecting down caudally the vesicouterine reflection. The vessels were then cauterized bilaterally and the colpotomy was performed and the vessels were incised and dissected off the cardinal ligament complex to allow the pedicle to fall away as well as the ureter. Once the colpotomy had been performed circumferentially, the uterus was placed through the vagina into the vaginal vault as a means to maintain pneumoperitoneum. The scissors were traded out for the needle laborer driver and the cuff was copiously irrigated and suctioned. The cuff was closed with a 2-0 barbed Stratafix suture in a running fashion, incorporating vaginal mucosa and posterior peritoneum in each bite, and then run back for several additional sutures to lock it in place. The needle was cut and removed out of the abdomen and the cuff was again irrigated copiously and suction. Low pressure check was performed. Hemostasis was noted to be excellent. There was an area on the left pelvic sidewall with black bluish appearing endometriotic implants. This area was grasped with the fenestrated and then incised with the scissors around it. This was sent separately for final pathology. All instruments were then removed from the abdomen. Pneumoperitoneum was released. The robot was undocked. The fascia of the camera port was closed with 0 Vicryl in a [id number] fashion. The skin was closed with 4-0 Monocryl in a subcuticular fashion and Dermabond was applied. The vaginal cuff was checked and noted to be hemostatic with excellent closure. All instruments were removed out the vagina. The patient tolerated the procedure well. Sponge, lap, and needle counts correct x2. The patient was taken to recovery room in stable condition. The patient received Ancef 2 g prior to the procedure. Job ID: [id number]
[2020-03-08] MEDS: Gabapentin 400 MG CAP PO SCH ×2 (17:14→21:27)
[2020-03-08] MEDS: Sodium Chloride 0.9% 1,000 ML IV SCH ×2 (17:14→21:54)
[2020-03-08] MEDS: HYDROcodone/Acetaminophen 5/325 mg Tablet PO PRN ×2 (18:21→23:47)
[2020-03-08] MEDS ORDERED: traZODone HCl 150 MG TAB PO SCH (21:00)
[2020-03-08] MEDS ORDERED: Atorvastatin Calcium 40 MG TAB PO SCH (21:00)
[2020-03-08] MEDS ORDERED: Non-Formulary Item 1 EACH (Insulin Glargine,Hum.Rec.Anlog [Toujeo Solostar] 300 UNIT/ML I SQ SCH (21:00)
[2020-03-08] MEDS: Insulin Glargine 56 UNITS in Pre-Filled Syringe 1 EACH SC SCH (21:42)
[2020-03-09] MEDS: HYDROcodone/Acetaminophen 5/325 mg Tablet PO PRN ×2 (05:37→10:49)
[2020-03-09 05:56] LABS: Hemoglobin 9.4 g/dL (12.0-16.0); Mean Corpuscular HGB CONC 31.4 g/dL (32.0-36.0); Mean Corpuscular Hemoglobin 23.7 pg (27.0-31.0); Mean Corpuscular Volume 75.6 fL (78.0-98.0); Mean Platelet Volume 6.8 fL (7.4-10.4); Platelet Count 405 thou/uL (130-400); RBC Distribution Width 16.5 % (11.5-14.5); Red Blood Cell (RBC) Count 3.97 mill/uL (4.20-5.40); White Blood Cell (WBC) Count 10.4 thou/uL (4.8-10.8)
[2020-03-09] MEDS ORDERED: Ibuprofen 600 MG TAB PO SCH (06:00)
[2020-03-09] MEDS: Sodium Chloride 0.9% 1,000 ML IV SCH (07:02)
[2020-03-09 08:09] VITALS: BP 97/56; TEMP 98.5
[2020-03-09] MEDS ORDERED: Liraglutide [Victoza 2-Pak] 0.6 MG/0.1 ML Pen.Injctr SC SCH (09:00)
[2020-03-09] MEDS ORDERED: Venlafaxine HCl XR 150 MG CAP PO SCH (09:00)
[2020-03-09] MEDS ORDERED: Losartan 25 MG TAB PO SCH (09:00)
[2020-03-09] MEDS ORDERED: Empagliflozin 25 MG TAB PO SCH (09:00)
[2020-03-09] MEDS: Gabapentin 400 MG CAP PO SCH (10:46)
[2020-03-09] MEDS: Insulin Glargine 56 UNITS in Pre-Filled Syringe 1 EACH SC SCH (10:47)
== END 2020-03-09 12:43 | disposition home or self-care (01) ==
LOC: SDC 10:25 → 3SE 16:45 → SDC 03-09 12:43
PROVIDERS: ATTEND Student in an Organized Health Care Education/Training Program
PROC: 0UT94ZZ Resection of Uterus, Percutaneous Endoscopic Approach (ICD-10-PCS; principal; 2020-03-08)
PROC: 0UT74ZZ Resection of Bilateral Fallopian Tubes, Percutaneous Endoscopic Approach (ICD-10-PCS; 2020-03-08)
DX: N88.8 Other specified noninflammatory disorders of cervix uteri (principal); N80.0 Endometriosis of uterus; N80.3 Endometriosis of pelvic peritoneum; F32.9 Major depressive disorder, single episode, unspecified; E11.42 Type 2 diabetes mellitus with diabetic polyneuropathy; Z79.4 Long term (current) use of insulin; Z79.899 Other long term (current) drug therapy; Z88.8 Allergy status to other drugs, medicaments and biological substances; Z91.040 Latex allergy status
CPT/HCPCS: 36415; 36416; 85027; 86850; 86900; 86901; 88305; 88307; J0690; J1100; J1815; J2250; J2270; J2405; J2704; J3010; S0020; S0028

== ENCOUNTER 2021-02-10 15:17 | Outpatient (CLI) | payer MEDICARE, MEDICAID | END 2021-02-10 15:18 | disposition home or self-care (01) | LOC: BICMRI 15:17 | PROVIDERS: ATTEND Student in an Organized Health Care Education/Training Program | DX: M54.41 Lumbago with sciatica, right side (principal); M47.816 Spondylosis without myelopathy or radiculopathy, lumbar region; M48.04 Spinal stenosis, thoracic region; M25.78 Osteophyte, vertebrae | CPT/HCPCS: 72148 ==

== ENCOUNTER 2022-09-11 14:18 | Outpatient (CLI) | payer OTHER, MEDICAID | END 2022-09-11 14:19 | disposition home or self-care (01) | LOC: MRI 14:18 | PROVIDERS: ATTEND Psychiatry & Neurology Neurology | DX: G62.9 Polyneuropathy, unspecified (principal); M51.34 Other intervertebral disc degeneration, thoracic region; M48.04 Spinal stenosis, thoracic region; G95.9 Disease of spinal cord, unspecified | CPT/HCPCS: 72146; 72148 ==

== ENCOUNTER 2022-10-05 09:38 | Outpatient (CLI) | payer OTHER, MEDICAID ==
[2022-10-05 11:24] LABS: Anion Gap 16 mmol/L (10-20); BUN (Urea Nitrogen) 12 mg/dL (7.0-18.7); Calc. Creatinine Clearance 0 mL/min (70-130); Calcium 9.1 mg/dL (7.8-10.44); Carbon Dioxide 25 mmol/L (22-29); Chloride 106 mmol/L (98-107); Estimated GFR 108; Glucose 157 mg/dL (70-105); Potassium 4.2 mmol/L (3.5-5.1); Sodium 143 mmol/L (136-145)
== END 2022-10-05 09:39 | disposition home or self-care (01) ==
LOC: LABBT 09:38
PROVIDERS: ATTEND Neurological Surgery
DX: Z01.818 Encounter for other preprocedural examination (principal); M48.04 Spinal stenosis, thoracic region; G95.9 Disease of spinal cord, unspecified
CPT/HCPCS: 80048; 93005; 93010

== ENCOUNTER 2022-12-27 08:57 | Outpatient (CLI) | payer OTHER, MEDICAID | END 2022-12-27 08:58 | disposition home or self-care (01) | LOC: BICRAD 08:57 | PROVIDERS: ATTEND Student in an Organized Health Care Education/Training Program | DX: M25.561 Pain in right knee (principal) ==

== ENCOUNTER 2023-01-30 14:45 | Emergency (ER) | payer OTHER, MEDICAID ==
[2023-01-30 17:07] LABS: SARS-CoV-2 NAA Rapid Test Not Detected (NotDetected)
[2023-01-30 17:08] LABS: #Eosinphils 0.2 thou/uL (0.0-0.7); #Monocytes 0.6 thou/uL (0.11-0.59); #Neutrophils 1.2 thou/uL (1.40-6.50); %Basophils 0.8 % (0.0-1.0); %Eosinophils 4.8 % (0.0-10.0); %Lymphocytes 46.7 % (21.0-51.0); %Monocytes 15.9 % (0.0-10.0); %Neutrophils 31.3 % (42.0-75.0); Hematocrit 43.9 % (36.0-47.0); Hemoglobin 14.9 g/dL (12.0-16.0); Mean Corpuscular HGB CONC 33.9 g/dL (32.0-36.0); Mean Corpuscular Hemoglobin 31.3 pg (27.0-31.0); Mean Corpuscular Volume 92.2 fl (78.0-98.0); Mean Platelet Volume 8.7 fL (7.4-10.4); Platelet Count 256 10x3/uL (130-400); RBC Distribution Width 12.6 % (11.5-14.5); Red Blood Cell (RBC) Count 4.76 mill/uL (4.20-5.40)
[2023-01-30 17:20] LABS: BHCG - Serum Negative (NEGATIVE); Pregs Control Background? CLEAR/WHITE (CLR/WHITE); Pregs Control Bar Appear? YES (CONTROL BAR)
[2023-01-30 17:24] LABS: ALT (SGPT) 35 U/L (8-55); AST (SGOT) 23 U/L (5-34); Albumin 4.6 g/dL (3.5-5.0); Alkaline Phosphatase 103 U/L (40-110); Anion Gap 13 mmol/L (10-20); BUN (Urea Nitrogen) 11 mg/dL (7.0-18.7); Bilirubin, Total 0.6 mg/dL (0.2-1.2); Calc. Creatinine Clearance 0 mL/min (70-130); Calcium 9.4 mg/dL (7.8-10.44); Carbon Dioxide 23 mmol/L (22-29); Chloride 104 mmol/L (98-107); Estimated GFR 108; Globulin 2.5 g/dL (2.4-3.5); Glucose 68 mg/dL (70-105); Lipase 30 U/L (8-78); Potassium 3.9 mmol/L (3.5-5.1); Protein, Total 7.1 g/dL (6.0-8.3); Sodium 136 mmol/L (136-145)
[2023-01-30 17:39] LABS: Troponin I Less than 0.010 ng/mL (< 0.028)
[2023-01-30] MEDS ORDERED: Benzonatate 100 MG CAP ONE (18:00)
[2023-01-30] MEDS ORDERED: Azithromycin 250 MG TAB ONE (19:14)
== END 2023-01-30 19:23 | disposition home or self-care (01) ==
LOC: ERS 14:45
DX: J20.9 Acute bronchitis, unspecified (principal); E11.9 Type 2 diabetes mellitus without complications; E78.5 Hyperlipidemia, unspecified; I10 Essential (primary) hypertension; Z79.899 Other long term (current) drug therapy; Z20.822 Contact with and (suspected) exposure to COVID-19
CPT/HCPCS: 0240U; 71045; 80053; 83690; 84484; 84703; 85025; 85379; 93005; 36415